=== PATIENT | female | born 1960 | race Caucasian/White ===

== ENCOUNTER 2021-04-22 17:09 | Inpatient (IN) | payer MEDICARE ==
[~2021-04-22] VITALS: Ht 160 cm; Wt 76.0 kg
[2021-04-22 19:02] LABS: BUN/CREATININE RATIO 14 (0-10)
[2021-04-22 19:13] LABS: HEMOGLOBIN 13.7 gm/dl (12.3-15.3); RED BLOOD COUNT 4.7 M/UL (4.00-5.10)
[2021-04-23 11:03] LABS: ACINETOBACTER BAUMANNII Not Detected (Negative); CANDIDA ALBICANS Not Detected (Negative); CANDIDA KRUSEI Not Detected (Negative); CANDIDA TROPICALIS Not Detected (Negative); ENTEROCOCCUS Not Detected (Negative); ESCHERICHIA COLI Not Detected (Negative); KLEBSIELLA OXYTOCA Not Detected (Negative); KLEBSIELLA PNEUMONIAE Not Detected (Negative); KPC-CARBAPENEM-RESISTANCE GENE Not Detected (Negative); PROTEUS Not Detected (Negative); PSEUDOMONAS AERUGINOSA Not Detected (Negative); SERRATIA MARCESANS Not Detected (Negative); STAPHYLOCOCCUS Not Detected (Negative); STAPHYLOCOCCUS AUREUS Not Detected (Negative); STREP AGALACTIAE (GROUP B) Not Detected (Negative); STREP PYOGENES (GROUP A) Not Detected (Negative); STREPTOCOCCUS Not Detected (Negative); mecA (METHICILLIN RESIST GENE Not Detected (Negative); vanA/B (VANCOMYCIN RESIST GENE Not Detected (Negative)
[2021-04-23 11:04] LABS: HAEMOPHILUS INFLUENZAE DETECTED (Negative)
[2021-04-23 15:17] LABS: HEMOGLOBIN 12.4 gm/dl (12.3-15.3); WHITE BLOOD COUNT 21.1 K/UL (4.5-11.0)
[2021-04-23 15:18] LABS: RED BLOOD COUNT 4.18 M/UL (4.00-5.10)
[2021-04-23 16:15] LABS: BUN/CREATININE RATIO 22 (0-10)
[2021-04-23] MEDS ORDERED: NEURONTIN600 MG PO (18:05)
[2021-04-23] MEDS ORDERED: HYDROCODON-ACE1 EAC2 PO (18:06)
[2021-04-23] MEDS ORDERED: PROTONIX40 MG PO (18:07)
[2021-04-23] MEDS ORDERED: BUDESONIDE-FO10.2 G1 INH (18:08)
[2021-04-23] MEDS ORDERED: PROAIR HFA8.5 GM INH (18:08)
[2021-04-23] MEDS ORDERED: PREVACID30 MG PO (18:09)
[2021-04-23] MEDS ORDERED: NORVASC5 MG PO (18:09)
[2021-04-23] MEDS ORDERED: COREG25 MG PO (18:09)
[2021-04-23] MEDS ORDERED: DITROPAN 5 MG TA5 MG PO (18:10)
[2021-04-23] MEDS ORDERED: LISINOPRIL20 MG PO (18:10)
[2021-04-23] MEDS ORDERED: SYNTHROID50 MCG PO (18:10)
[2021-04-23] MEDS ORDERED: CELEXA40 MG PO (18:11)
[2021-04-23] MEDS ORDERED: HYDROCHLOROTH12.5 MG PO (18:12)
[2021-04-23] MEDS ORDERED: ZANAFLEX 4 MG TA4 MG PO (18:13)
[2021-04-23] MEDS ORDERED: LIPITOR80 MG PO (18:14)
[2021-04-24 05:58] LABS: HEMOGLOBIN 11.4 gm/dl (12.3-15.3); RED BLOOD COUNT 3.87 M/UL (4.00-5.10)
[2021-04-24 06:05] LABS: WHITE BLOOD COUNT 14.9 K/UL (4.5-11.0)
[2021-04-24 06:23] LABS: BUN/CREATININE RATIO 37 (0-10)
[2021-04-24 10:14] LABS: HBSAG SCREEN Negative (Negative); HEP A AB, IGM Negative (Negative); HEP B CORE AB, IGM Negative (Negative); HEP C VIRUS AB <0.1 (0.0-0.9)
[2021-04-25 04:24] LABS: HEMOGLOBIN 11.6 gm/dl (12.3-15.3); RED BLOOD COUNT 3.96 M/UL (4.00-5.10); WHITE BLOOD COUNT 12.3 K/UL (4.5-11.0)
[2021-04-25 04:58] LABS: BUN/CREATININE RATIO 46 (0-10)
--- NOTE | 2021-04-25 17:19 | NUR ---
CALLED DR BADILLO RE: PT STATUS/BEHAVIOR, INFORMED HER THAT THE THINKS SHE MAY BE GOING THROUGH WITHDRAWALS AND SHE WAS TRYING TO COME OUT OF THE BED AND WAS IRRITATED. DR BADILLO EXPLAINED THAT DUE TO THE PT'S CURRENT MENTAL STATUS SHE WAS NOT GIVING HER ANY NARCOTICS AT THIS TIME.
[2021-04-26 08:41] LABS: RED BLOOD COUNT 3.82 M/UL (4.00-5.10); WHITE BLOOD COUNT 7.8 K/UL (4.5-11.0)
[2021-04-26 12:18] LABS: BUN/CREATININE RATIO 31 (0-10)
[2021-04-27 03:32] LABS: BUN/CREATININE RATIO 25 (0-10)
[2021-04-28 02:38] LABS: BUN/CREATININE RATIO 20 (0-10)
[2021-04-28] MEDS ORDERED: LACTULOSE20 GM/30 M PO (10:57)
[2021-04-28] MEDS ORDERED: OMNICEF 300 MG300 MG PO (10:57)
== END 2021-04-28 14:54 | disposition home or self-care (01) | DRG 871 ==
LOC: ER1 17:09 → CDU 23:49 → PROG CARE 04-23 12:30
PROVIDERS: Emergency Medicine; Internal Medicine; ADMIT Internal Medicine
DX: A41.89 Other specified sepsis (principal); G93.41 Metabolic encephalopathy; J96.01 Acute respiratory failure with hypoxia; J18.9 Pneumonia, unspecified organism; K72.00 Acute and subacute hepatic failure without coma; J10.00 Influenza due to other identified influenza virus with unspecified type of pneumonia; E87.2 Acidosis; J44.0 Chronic obstructive pulmonary disease with (acute) lower respiratory infection; R18.8 Other ascites; F11.20 Opioid dependence, uncomplicated; Z20.822 Contact with and (suspected) exposure to COVID-19; R65.20 Severe sepsis without septic shock; M54.9 Dorsalgia, unspecified; G89.29 Other chronic pain; E78.5 Hyperlipidemia, unspecified; E03.9 Hypothyroidism, unspecified; K21.9 Gastro-esophageal reflux disease without esophagitis; M19.91 Primary osteoarthritis, unspecified site; I10 Essential (primary) hypertension; K74.60 Unspecified cirrhosis of liver; R79.89 Other specified abnormal findings of blood chemistry; F17.210 Nicotine dependence, cigarettes, uncomplicated; E78.00 Pure hypercholesterolemia, unspecified; F32.A Depression, unspecified; F41.9 Anxiety disorder, unspecified; Z79.899 Other long term (current) drug therapy
CPT/HCPCS: 36415; 36600; 70450; 71045; 71260; 80048; 80053; 80074; 80202; 80307; 81001; 82140; 82550; 82553; 82803; 82962; 83605; 83735; 83874; 83880; 84132; 84439; 84443; 84484; 85025; 85610; 85730; 87040; 87077; 87150; 93005; 94640; 94664; 94760; 96365; 96366; 96375; 99285; G0480; J0133; J0290; J0692; J1100; J1630; J1650; J2060; J3370; J3480; J3486; J7030; J7070; Q9967; U0002

== ENCOUNTER → 2021-06-27 | Day surgery (SDC) | payer MEDICARE ==
[~2021-06-27] MED LIST: ALLEGRA ALLERG180 MG PO; BUDESONIDE-FO10.2 G1 INH; CELEXA40 MG PO; CLINDAMYCIN HC300 MG PO; COREG 25MG TAB25 MG PO; COREG25 MG PO; DITROPAN 5 MG TA5 MG PO; FISH OIL300 MG PO; HYDROCHLOROTH12.5 MG PO; HYDROCODON-ACE1 EAC2 PO; LACTULOSE20 GM/30 M PO; LIPITOR80 MG PO; LISINOPRIL20 MG PO; LORTAB 7.5-3251 EACH PO; NEURONTIN 400400 MG PO; NEURONTIN600 MG PO; NORVASC 5 MG TAB5 MG PO; NORVASC5 MG PO; OMNICEF 300 MG300 MG PO; PREVACID30 MG PO; PROAIR HFA8.5 GM INH; PROTONIX 40 MG40 M1 PO; PROTONIX40 MG PO; SYMBICORT 80-10.2 GM INH; SYNTHROID50 MCG PO; ZANAFLEX 4 MG TA4 MG PO; ZANAFLEX4 M1 PO; ZANTAC300 MG PO
== END | disposition home or self-care (01) ==
LOC: OR 06:28
DX: K74.69 Other cirrhosis of liver (principal); R18.8 Other ascites; U07.1 COVID-19; K72.90 Hepatic failure, unspecified without coma; I10 Essential (primary) hypertension; E11.9 Type 2 diabetes mellitus without complications; E03.9 Hypothyroidism, unspecified; E78.00 Pure hypercholesterolemia, unspecified; Z72.0 Tobacco use; Z88.0 Allergy status to penicillin; Z53.8 Procedure and treatment not carried out for other reasons
CPT/HCPCS: J7040; U0002

== ENCOUNTER 2021-08-29 09:21 | Inpatient (IN) | payer MEDICARE ==
[~2021-08-29] VITALS: Ht 167.6 cm; Wt 59.0 kg
[~2021-08-29 09:21] MED LIST changes: +SYMBICORT 16010.2 GM INH; -SYMBICORT 80-10.2 GM INH; -ZANAFLEX4 M1 PO
[2021-08-29 09:53] LABS: HEMOGLOBIN 13.4 gm/dl (12.3-15.3); RED BLOOD COUNT 4.59 M/UL (4.00-5.10); WHITE BLOOD COUNT 11.6 K/UL (4.5-11.0)
[2021-08-29 10:29] LABS: BUN/CREATININE RATIO 13 (0-10)
[2021-08-29] MEDS ORDERED: LACTULOSE10 GM/151 PO (14:24)
[2021-08-29] MEDS ORDERED: FUROSEMIDE20 MG PO (15:41)
[2021-08-29] MEDS ORDERED: SPIRONOLACTONE50 MG PO (15:42)
[2021-08-29] MEDS ORDERED: VITAMIN C 500500 MG PO (15:56)
[2021-08-29] MEDS ORDERED: ALLEGRA ALLERG180 MG PO (15:57)
[2021-08-29] MEDS ORDERED: FEROSUL325 MG PO (15:57)
[2021-08-29] MEDS ORDERED: ZANAFLEX4 M1 PO (23:25)
--- NOTE | 2021-08-30 05:40 | NUR ---
APPROX 0300 LEFT BEDSIDE. PT STILL HAS SITTER AT BEDSIDE. PT BEGINS TO AWAKEN AROUND 0320. PT IS CONTINUALLY TRYING TO ROOM SERVICE ASSOCIATE BED, GET OUT OF BED, CRAWLING IN BED ON HER KNEES. STAFF TRYS TO REORIENT PT MULTIPLE TIMES. TECH ASSIST PT TO WHEELCHAIR TO TRY AND REORIENT PT AND HELP CALM HER DOWN, PT WOULD NOT STAY IN WHEELCHAIR AND WAS ASSIST IMMEDIATLEY BACK TO BED. APPROX 0400 AND IV IS PLACED WITH THE ASSIST OF 2 RNS AND TECH. PT DURING THIS WHOLE TIME IS REPEATIVELY STATING TO HELP ME, HELP ME. ADMIN [place] PT SETTLES DOWN AROUND 0530.
[2021-08-30 08:57] LABS: HEMOGLOBIN 14.3 gm/dl (12.3-15.3); RED BLOOD COUNT 4.93 M/UL (4.00-5.10)
[2021-08-30 09:11] LABS: WHITE BLOOD COUNT 14.8 K/UL (4.5-11.0)
[2021-08-30 09:26] LABS: BUN/CREATININE RATIO 13 (0-10)
--- NOTE | 2021-08-31 04:28 | NUR ---
PT IS BECOMING MORE AWARE, PT IS ASKING FOR ICE, PT STATED NAME,,AND WHERE SHE WAS AT AT THIS TIME. ASKED ABOUT AND STATED SOME OF HER MEDICAL HISTORY IN CONVERSATION. DAUGHTER IN LAW IS AT BEDSIDE.
[2021-08-31 06:14] LABS: HEMOGLOBIN 14.3 gm/dl (12.3-15.3); RED BLOOD COUNT 5.03 M/UL (4.00-5.10); WHITE BLOOD COUNT 12.1 K/UL (4.5-11.0)
[2021-08-31 06:43] LABS: BUN/CREATININE RATIO 11 (0-10)
[2021-09-01 05:59] LABS: HEMOGLOBIN 13.1 gm/dl (12.3-15.3); RED BLOOD COUNT 4.59 M/UL (4.00-5.10)
[2021-09-01 06:06] LABS: WHITE BLOOD COUNT 7.9 K/UL (4.5-11.0)
[2021-09-01 06:28] LABS: BUN/CREATININE RATIO 13 (0-10)
[2021-09-01] MEDS ORDERED: CHRONULAC20 GM/30 M PO (14:54)
[2021-09-01] MEDS ORDERED: XIFAXAN 550 MG550 MG PO (14:54)
[2021-09-01] MEDS ORDERED: LEVOFLOXACIN750 MG PO (14:54)
[2021-09-01 16:07] LABS: BUN/CREATININE RATIO 13 (0-10)
[2021-09-02] MEDS ORDERED: NICOTINE PATCH1 EAC1 TD (15:42)
--- NOTE | 2021-09-02 18:13 | NUR ---
REPORT CALLED GEOFFREY SANTAMARIA REPORT
== END 2021-09-02 18:26 | disposition home health service (06) | DRG 441 ==
LOC: ER1 09:21 → CDU 12:58 → MED SURG 4 13:12
PROVIDERS: Physician Assistant; Physician Assistant Medical; ADMIT Internal Medicine
DX: K72.00 Acute and subacute hepatic failure without coma (principal); G92.8 Other toxic encephalopathy; J69.0 Pneumonitis due to inhalation of food and vomit; E87.1 Hypo-osmolality and hyponatremia; J44.0 Chronic obstructive pulmonary disease with (acute) lower respiratory infection; Z20.822 Contact with and (suspected) exposure to COVID-19; E87.6 Hypokalemia; E83.42 Hypomagnesemia; I10 Essential (primary) hypertension; Z66 Do not resuscitate; E78.5 Hyperlipidemia, unspecified; E03.9 Hypothyroidism, unspecified; K74.60 Unspecified cirrhosis of liver; F17.200 Nicotine dependence, unspecified, uncomplicated; K21.9 Gastro-esophageal reflux disease without esophagitis; K75.81 Nonalcoholic steatohepatitis (NASH); E11.9 Type 2 diabetes mellitus without complications; Z88.0 Allergy status to penicillin; Z88.1 Allergy status to other antibiotic agents; Z98.890 Other specified postprocedural states; Z80.9 Family history of malignant neoplasm, unspecified; Z83.3 Family history of diabetes mellitus
CPT/HCPCS: 36415; 70450; 71045; 80048; 80053; 80307; 81001; 82140; 82550; 82553; 82607; 83735; 84132; 84439; 84443; 84484; 85025; 85027; 85610; 87040; 92610; 93005; 94640; 94760; 96374; 99285; C9113; J1956; J2060; J2270; U0002